=== PATIENT | female | born 1960 | race Caucasian/White ===

== ENCOUNTER 2022-11-18 08:51 | Outpatient (REF) | payer BC, SELFPAY ==
[2022-11-18 15:27] LABS: Abs Immature Grans 0.02 10^3/uL (0.0-0.06); Absolute Basophil Count 0.03 10^3/uL (0.0-0.2); Absolute Eosinophil Count 0.11 10^3/uL (0.0-0.7); Absolute Lymphocyte Count 1.56 10^3/uL (1.2-3.4); Absolute Monocyte Count 0.49 10^3/uL (0.1-0.8); Absolute Neutrophil Count 3.58 10^3/uL (1.2-6.7); Basophils % 0.5; Eosinophils % 1.9; HCT 35.3 % (36.0-46.0); Immature Grans % 0.3; Lymphocytes % 26.9; MCH 32.7 pg (27.0-33.0); MCV 96 fL (80-95); MPV 10.9 fL (8.0-11.0); Monocytes % 8.5; Neutrophils % 61.9; Platelet Count 239 10^3/uL (130-400); RBC 3.67 10^6/uL (3.93-5.22); RDW 12.3 % (11.7-14.6); WBC 5.79 10^3/uL (4.4-10.8)
[2022-11-18 17:06] LABS: ALT 17 U/L (14-59); AST 15 U/L (15-37); Alkaline Phosphatase 56 U/L (46-116); Anion Gap 7.6 mmol/L (3-11); BUN 16 mg/dL (7-18); Bilirubin, Total 1.7 mg/dL (0.2-1.0); CO2 27.4 mmol/L (21.0-32.0); CREATININE 0.8 mg/dL (0.55-1.02); Calcium 8.9 mg/dL (8.5-10.1); Calculated LDL 114 mg/dL (<100); Chloride 105 mmol/L (98-107); Cholesterol 203 mg/dL (<200); Glucose 97 mg/dL (74-106); HDL Cholesterol 83 mg/dL (40-60); Potassium 4.1 mmol/L (3.5-5.1); Sodium 140 mmol/L (136-145); TSH (W/Ref FT4) 2.74 uIU/mL (0.36-3.74); Total Protein 7.3 g/dL (6.4-8.2); Triglyceride 30 mg/dL (<150)
[2022-11-18 17:37] LABS: Hemoglobin A1C 5.2 % (<5.7)
== END 2022-11-18 08:52 | disposition home or self-care (01) ==
LOC: NCHCN 08:51
PROVIDERS: PCP Family Medicine; Visit Provider Family Medicine
DX: D72.819 Decreased white blood cell count, unspecified (principal); R53.83 Other fatigue; Z13.1 Encounter for screening for diabetes mellitus; E78.5 Hyperlipidemia, unspecified; Z00.00 Encounter for general adult medical examination without abnormal findings
CPT/HCPCS: 80053; 80061; 83036; 84443; 85025

== ENCOUNTER 2023-09-04 14:48 | Outpatient (REF) | payer BC, SELFPAY ==
[2023-09-04 15:58] LABS: HCT 40.9 % (36.0-46.0); HGB 13.7 g/dL (11.2-15.7); MCHC 33.5 % (32.0-36.0); MCV 99 fL (80-95); Platelet Count 189 10^3/uL (130-400); RBC 4.15 10^6/uL (3.93-5.22); RDW 11.6 % (11.7-14.6); RDW-SD 42.2 fL; WBC 5.12 10^3/uL (4.4-10.8)
[2023-09-04 17:36] LABS: ALT 29 U/L (14-59); AST 22 U/L (15-37); Albumin 4.5 g/dL (3.4-5.0); Alkaline Phosphatase 62 U/L (46-116); Anion Gap 9.4 mmol/L (3-11); BUN 14 mg/dL (7-18); Bilirubin, Total 1.83 mg/dL (0.2-1.0); CO2 27.6 mmol/L (21.0-32.0); CREATININE 0.7 mg/dL (0.55-1.02); Calcium 9.3 mg/dL (8.5-10.1); Calculated LDL 131 mg/dL (<100); Chloride 105 mmol/L (98-107); Cholesterol 234 mg/dL (<200); Estimated GFR 98.34 (mL/min/1.73m2); Glucose 95 mg/dL (74-106); HDL Cholesterol 93 mg/dL (40-60); Potassium 4.4 mmol/L (3.5-5.1); Sodium 142 mmol/L (136-145); TSH (W/Ref FT4) 2.81 uIU/mL (0.36-3.74); Total Protein 7.9 g/dL (6.4-8.2); Triglyceride 54 mg/dL (<150)
[2023-09-07 13:03] LABS: Unconjugated(Indirect) Bili 1.4 mg/dL (<=1.1)
== END 2023-09-04 14:49 | disposition home or self-care (01) ==
LOC: NCHCN 14:48
PROVIDERS: PCP Family Medicine; Visit Provider Family Medicine
DX: D64.9 Anemia, unspecified (principal); E78.5 Hyperlipidemia, unspecified; R53.83 Other fatigue; D72.819 Decreased white blood cell count, unspecified
CPT/HCPCS: 80053; 80061; 82248; 85027; 84443

== ENCOUNTER 2024-12-02 15:20 | Outpatient (REF) | payer BC, SELFPAY ==
[2024-12-02 14:50] LABS: HCT 36.0 % (36.0-46.0); HGB 12.1 g/dL (11.2-15.7); MCH 32.3 pg (27.0-33.0); MCHC 33.6 % (32.0-36.0); MCV 96 fL (80-95); MPV 11.1 fL (8.0-11.0); Platelet Count 220 10^3/uL (130-400); RBC 3.75 10^6/uL (3.93-5.22); RDW 12.2 % (11.7-14.6); RDW-SD 42.4 fL; WBC 4.95 10^3/uL (4.4-10.8)
[2024-12-02 15:28] LABS: ALT 21 U/L (14-59); AST 19 U/L (15-37); Albumin 4.2 g/dL (3.4-5.0); Alkaline Phosphatase 50 U/L (46-116); Anion Gap 5.3 mmol/L (3-11); BUN 11 mg/dL (7-18); Bilirubin, Total 1.5 mg/dL (0.2-1.0); CO2 28.7 mmol/L (21.0-32.0); Calcium 9.3 mg/dL (8.5-10.1); Chloride 106 mmol/L (98-107); Estimated GFR 97.72 (mL/min/1.73m2); Glucose 106 mg/dL (74-106); Potassium 4.3 mmol/L (3.5-5.1); Sodium 140 mmol/L (136-145); Total Protein 7.2 g/dL (6.4-8.2)
[2024-12-02 23:40] LABS: Folate > 20.0 ng/mL (8.6-20.0)
[2024-12-03 15:18] LABS: Calculated LDL 125 mg/dL (<100); Cholesterol 212 mg/dL (<200); HDL Cholesterol 81 mg/dL (>or=50); Triglyceride 33 mg/dL (<150)
== END 2024-12-02 15:21 | disposition home or self-care (01) ==
LOC: NCHCN 15:20
PROVIDERS: PCP Family Medicine; Visit Provider Family Medicine
DX: D64.9 Anemia, unspecified (principal); E78.5 Hyperlipidemia, unspecified
CPT/HCPCS: 80053; 80061; 85027; 82746